=== PATIENT | male | born 1995 | race Caucasian/White ===

== ENCOUNTER 2021-11-06 00:30 | Emergency (ER) | payer OTHER, BC ==
[2021-11-06] MEDS ORDERED: Sodium Chloride 0.9% 10 ML Syringe FLUSH PRN (00:50)
[2021-11-06] MEDS ORDERED: HYDROmorphone 0.5 MG/0.5 ML Syringe IVPUSH ONE ×3 (01:38→06:28)
[2021-11-06] MEDS ORDERED: Sodium Chloride 0.9% 1,000 ML IV ONE (03:22)
[2021-11-06] MEDS ORDERED: Sodium Chloride 0.9% 1,000 ML IV SCH (06:00)
[2021-11-06] MEDS ORDERED: HYDROmorphone 0.5 MG/0.5 ML Syringe ONE (06:28)
== END 2021-11-06 06:30 ==
LOC: JD.ED 00:30
DX: S52.201A Unspecified fracture of shaft of right ulna, initial encounter for closed fracture (principal); Z72.0 Tobacco use; V86.99XA Unspecified occupant of other special all-terrain or other off-road motor vehicle injured in nontraffic accident, initial encounter; Y92.410 Unspecified street and highway as the place of occurrence of the external cause
CPT/HCPCS: 36415; 70450; 71260; 72125; 73090; 74177; 80053; 80307; 83690; 85025; 96374; 96376; 99285; J1170; J7030